=== PATIENT | female | born 1980 | race African-American/Black ===

== ENCOUNTER 2023-11-25 18:56 | Emergency (ER) | payer BC, MEDICAID, OTHER ==
[~2023-11-25] VITALS: Ht 167.6 cm; Wt 87.0 kg
[2023-11-26] MEDS ORDERED: ACETAMINOPHEN 325 MG TAB PO ONE (00:15)
[2023-11-26] MEDS ORDERED: NAP500T PO (00:19)
[2023-11-26] MEDS ORDERED: CYCL-837 PO (05:01)
[2023-11-26] MEDS ORDERED: KETOROLAC TROMETH 60MG/2ML VIAL IM ONE (05:15)
[2023-11-26 06:52] VITALS: BP 128/67; PULSE 106; RESP 20; TEMP 98.3; O2SAT 99
== END 2023-11-26 08:02 | disposition home or self-care (01) ==
LOC: ER 18:56
DX: S16.1XXA Strain of muscle, fascia and tendon at neck level, initial encounter (principal); S29.012A Strain of muscle and tendon of back wall of thorax, initial encounter; S20.211A Contusion of right front wall of thorax, initial encounter; S09.90XA Unspecified injury of head, initial encounter; J45.909 Unspecified asthma, uncomplicated; Z79.899 Other long term (current) drug therapy; Z88.0 Allergy status to penicillin; V43.52XA Car driver injured in collision with other type car in traffic accident, initial encounter; Y93.89 Activity, other specified; Y92.410 Unspecified street and highway as the place of occurrence of the external cause; Y99.8 Other external cause status
CPT/HCPCS: 70450; 71250; 72125; 72128; 96372; 99285; J1885